=== PATIENT | female | born 1960 | race African-American/Black ===

== ENCOUNTER → 2019-05-27 | Outpatient (CLI) | payer OTHER ==
[~2019-05-27] MED LIST: AMLO10TA PO; ASPI81CH33 PO; LORA-479 PO; LOVA40TA PO; NO ITAB PO
[2019-05-27 07:17] LABS: HEMATOCRIT 42.9 % (36.0-47.0); HEMOGLOBIN 13.8 g/dl (12.0-15.5); MEAN CORPUSCULAR HGB CONC 32.2 g/dl (32.0-36.5); PLATELET COUNT, AUTOMATED 286 10^3/uL (150-450); RED BLOOD COUNT 5.11 10^6/uL (4.00-5.40)
[2019-05-27 08:38] LABS: ALBUMIN 4.2 GM/DL (3.2-5.2); BILIRUBIN,TOTAL 0.8 MG/DL (0.2-1.0); CALCIUM LEVEL 9.5 MG/DL (8.5-10.1); CREATININE FOR GFR 1.21 MG/DL (0.55-1.30); GLOMERULAR FILTRATION RATE 59.2 (>51); POTASSIUM SERUM 4.5 MEQ/L (3.5-5.1); TOTAL PROTEIN 7.6 GM/DL (6.4-8.2)
--- NOTE | 2019-05-27 16:34 | ECGEPIP ---
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 No prior ECG available for comparison at the time of interpretation. Electronically Signed on 05-27-2019 16:34:00 EDT by Bert Sheehan
== END ==
LOC: M LAB 06:13
PROVIDERS: ATTEND Podiatrist
DX: D49.9 Neoplasm of unspecified behavior of unspecified site (principal); M79.672 Pain in left foot

== ENCOUNTER 2019-06-03 05:42 | Day surgery (SDC) | payer OTHER ==
[~2019-06-03] VITALS: Ht 172.7 cm; Wt 88.5 kg
[2019-06-03] MEDS ORDERED: dexameTHASONE 4 MG/ML 1ML VIAL (J1100) As Ordered ONE (06:56)
[2019-06-03] MEDS ORDERED: LIDOCAINE 2% MDV 20 ML VIAL As Ordered ONE (06:56)
[2019-06-03] MEDS ORDERED: BUPIVACAINE HCL 0.5% 30 ML VIAL As Ordered ONE (06:56)
[2019-06-03] MEDS ORDERED: BACITRACIN PWD 50,000 UNITS VIAL As Ordered ONE (06:57)
[2019-06-03] MEDS ORDERED: PROPOFOL 200 MG/20 ML VIAL As Ordered ONE (07:40)
[2019-06-03] MEDS ORDERED: fentaNYL 100 MCG/2 ML INJECTION (J3010) As Ordered ONE (07:40)
[2019-06-03] MEDS ORDERED: LIDOCAINE 2% INJ 100 MG/5 ML SDV (FOR ANES.) As Ordered ONE (07:40)
[2019-06-03] MEDS ORDERED: MIDAZOLAM INJ 2 MG/2 ML VIAL (J2250) As Ordered ONE (07:40)
[2019-06-03] MEDS ORDERED: KETOROLAC 60 MG/2 ML VIAL (J1885) As Ordered ONE (07:44)
[2019-06-03] MEDS ORDERED: ACETAMINOPHEN 1000MG 100ML IV BTL (OFIRMEV) (J0131 PER 10MG) As Ordered ONE (07:44)
[2019-06-03] MEDS ORDERED: ONDANSETRON 4MG/2ML VIAL (J2405) As Ordered ONE (07:47)
[2019-06-03] MEDS: NEOSPORIN GU IRRIG 20 ML VIAL As Ordered ONE ×2 (07:56→08:25)
[2019-06-03] MEDS ORDERED: SEVOFLURANE INHAL SOLN 250 ML BTL As Ordered ONE (08:01)
[2019-06-03 10:20] VITALS: BP 117/76
--- NOTE | 2019-06-06 10:02 | RO ---
DATE OF PROCEDURE: 06/03/2019 PREOPERATIVE DIAGNOSIS: Soft tissue mass medial surface left foot. POSTOPERATIVE DIAGNOSIS: Abnormal herniated muscle belly left foot. PROCEDURE: Excision of herniated muscle belly with biopsy left foot. SURGEON: Rohit De Leon DPM VICE PRESIDENT MEDICAL AFFAIRS: None. ANESTHESIA: Local MAC. HEMOSTASIS: Ankle pneumatic tourniquet at 250 mmHg for 19 minutes. IRRIGATION: Dilute bacitracin, neomycin and polymyxin B solution. ESTIMATED BLOOD LOSS: Less than 1 mL. IMPLANTABLES: None. DESCRIPTION OF PROCEDURE: On 06/03/2019, this 59-year-old black female was taken from her hospital room to the operating room and placed on the operating room table in a supine position. Following the induction of IV sedation, local and regional anesthesia, the left lower extremity was prepped and draped in the usual aseptic manner. Attention was directed to the patient' s left foot where there was noted to be a soft tissue mass on the medial surface of the left foot. At this time, a 3 cm incision was placed over the medial aspect of the foot. Dissection was carried down to the level of the fascia where the fascia was noted to be elevated. The fascia was reflected down and there was an abnormal muscle of fascial slip on the side. Utilizing electrocautery and scalpel, the lobed muscle belly was removed and sent for biopsy. This measured approximately 3 cm in length. The wound was then flushed with copious amounts of dilute bacitracin, neomycin and polymyxin B solution. The surrounding area was inspected and no other abnormalities could be seen. Attention was then directed to the fascia which was repaired utilizing #2-0 Monocryl. Subcutaneous tissues were coapted and maintained utilizing #4-0 Monocryl in a simple interrupted type fashion. The skin incision was coapted and maintained utilizing #4-0 Prolene in a simple interrupted and horizontal mattress type fashion. Attention was directed towards bandaging where a sterile compressive bandage was applied consisting of Adaptic, 4x4s, 4x4 splints, Marc and Kerlix. The ankle pneumatic tourniquet was rapidly deflated and instantaneous capillary filling time was noted in digits 1-5 of the left foot. The patient having apparently tolerated the surgical procedure well was taken from the operating room (OR) to the recovery room for further monitoring by the anesthesia department. All surgical specimens removed during the operative procedure were sent to pathology for gross and microscopic examination. Postoperative instructions will be given upon discharge.
== END 2019-06-03 10:50 | disposition home or self-care (01) ==
LOC: M SDC 05:42
PROVIDERS: ATTEND Podiatrist
DX: M79.672 Pain in left foot (principal); D49.89 Neoplasm of unspecified behavior of other specified sites; I10 Essential (primary) hypertension; E78.49 Other hyperlipidemia; K21.9 Gastro-esophageal reflux disease without esophagitis; Z79.899 Other long term (current) drug therapy
CPT/HCPCS: 28041; 88305; 97116; J0131; J0690; J1100; J1885; J2250; J2405; J3010

== ENCOUNTER 2023-06-27 05:37 | Emergency (ER) | payer OTHER ==
[~2023-06-27] VITALS: Ht 170.2 cm; Wt 90.0 kg
[~2023-06-27 05:37] MED LIST changes: -LORA-479 PO; +LORA-926 PO
[2023-06-27] MEDS ORDERED: METF500T13 (05:47)
[2023-06-27] MEDS ORDERED: TERB250T91 (05:47)
[2023-06-27] MEDS ORDERED: KETOROLAC 30 MG/ML 1ML VIAL IV ONE (07:10)
[2023-06-27 08:08] LABS: BASO # 0.1 10^3/uL (0.0-0.2); BASO % 0.9 % (0.0-1.0); EOS # 0.4 10^3/uL (0.0-0.5); EOS % 5.1 % (0.0-3.0); HEMATOCRIT 43.9 % (36.0-47.0); LYMPH # 2.4 10^3/uL (1.5-5.0); LYMPH % 34.8 % (24.0-44.0); MEAN CORPUSCULAR HEMOGLOBIN 26.8 pg (27.0-33.0); MEAN CORPUSCULAR HGB CONC 31.9 g/dl (32.0-36.5); MEAN CORPUSCULAR VOLUME 84.1 fl (80.0-96.0); MONO # 0.4 10^3/uL (0.0-0.8); MONO % 6.4 % (2.0-8.0); NEUTROPHILS # 3.6 10^3/uL (1.5-8.5); NEUTROPHILS % 52.7 % (36.0-66.0); PLATELET COUNT, AUTOMATED 315 10^3/uL (150-450); RED BLOOD COUNT 5.22 10^6/uL (4.00-5.40); WHITE BLOOD COUNT 6.9 10^3/uL (4.0-10.0)
[2023-06-27 08:40] LABS: ERYTHROCYTE SEDIMENTATION RATE 56 mm/hr (0-30)
[2023-06-27] MEDS ORDERED: MEDR4PAK PO (08:53)
[2023-06-27] MEDS ORDERED: KETO10TAB PO (08:53)
[2023-06-27 09:06] VITALS: BP 138/86; TEMP 97.7; O2SAT 96
== END 2023-06-27 09:08 | disposition home or self-care (01) ==
LOC: M ED 05:37
DX: M17.11 Unilateral primary osteoarthritis, right knee (principal); I10 Essential (primary) hypertension; E78.5 Hyperlipidemia, unspecified; D25.9 Leiomyoma of uterus, unspecified; Z79.82 Long term (current) use of aspirin; Z79.811 Long term (current) use of aromatase inhibitors; Z79.899 Other long term (current) drug therapy
CPT/HCPCS: 73564; 80047; 85025; 85652; 86140; 93971; 96374; 99284; J1885